=== PATIENT | female | born 1985 | race Two or more races ===

== ENCOUNTER 2019-05-12 01:45 | Emergency (ER) | payer OTHER ==
[~2019-05-12] VITALS: Ht 170.2 cm; Wt 68.0 kg
[2019-05-12 02:06] VITALS: BP 127/90
--- NOTE | 2019-05-12 03:44 | NUR ---
Patient discharged to [facility] in stable condition. Written and verbal after care instructions given. Patient verbalizes understanding of instruction.
== END 2019-05-12 03:45 ==
LOC: EDBD 01:59 → ER 01:59
DX: S80.12XA Contusion of left lower leg, initial encounter (principal); S80.11XA Contusion of right lower leg, initial encounter; G40.909 Epilepsy, unspecified, not intractable, without status epilepticus; V49.49XA Driver injured in collision with other motor vehicles in traffic accident, initial encounter; Y93.89 Activity, other specified; Y92.413 State road as the place of occurrence of the external cause; Y99.8 Other external cause status
CPT/HCPCS: 73590-TC